=== PATIENT | male | born 1975 | race Caucasian/White ===

== ENCOUNTER 2016-06-29 12:42 | Emergency (ER) | payer BC ==
[~2016-06-29 12:42] MED LIST: CENTRUM PO; DIOVAN320 MG PO; HYDROCHLOROT12.5 MG PO; KLONO5 PO; [UNRECOGNIZED DRUG - REMARK]
== END 2016-06-29 13:00 | disposition home or self-care (01) ==
LOC: ER 12:42
DX: M79.672 Pain in left foot (principal); I10 Essential (primary) hypertension; F41.9 Anxiety disorder, unspecified; F17.210 Nicotine dependence, cigarettes, uncomplicated; Z88.5 Allergy status to narcotic agent; Z79.899 Other long term (current) drug therapy
CPT/HCPCS: 73630-LT; 99283